=== PATIENT | male | born 1965 | race Caucasian/White ===

== ENCOUNTER 2016-08-08 15:53 | Inpatient (IN) | payer MEDICARE ==
[~2016-08-08] VITALS: Ht 188 cm; Wt 113.0 kg
[~2016-08-08 15:53] MED LIST: CALC-451 PO; DOLU50TA PO; EMTR1TAB12 PO; GABA300C10 PO; LISI1TAB5 PO; MULT-658 PO; VIT1CAPS9 PO; VITA150T PO; ZIPR60CA3 PO
[2016-08-08 16:10] VITALS: BP 134/89
[2016-08-08] MEDS ORDERED: LACTATED RINGERS 1,000 ML IV SCH (16:15)
[2016-08-08] MEDS ORDERED: FENTANYL PF 100 MCG/2ML ONE ×2 (17:02→17:37)
[2016-08-08] MEDS ORDERED: ONDANSETRON 2MG/ML, 2ML ONE (17:03)
[2016-08-08] MEDS ORDERED: PROPOFOL 10 MG/ML, 20ML ONE (17:03)
[2016-08-08] MEDS ORDERED: VANCOMYCIN 1,000 MG ONE (17:12)
[2016-08-08] MEDS ORDERED: BACITRACIN 50,000 UNIT ONE (17:17)
[2016-08-08] MEDS ORDERED: METOPROLOL 1 MG/ML, 5ML IV PRN (17:30)
[2016-08-08] MEDS ORDERED: PROMETHAZINE 25 MG/ML, 1ML IV PRN (17:30)
[2016-08-08] MEDS ORDERED: FENTANYL PF 100 MCG/2ML IV PRN (17:30)
[2016-08-08] MEDS ORDERED: MIDAZOLAM 1 MG/ML, 2ML IV PRN (17:30)
[2016-08-08] MEDS ORDERED: LABETALOL 5MG/ML, 20ML IV PRN (17:30)
[2016-08-08] MEDS ORDERED: ONDANSETRON 2MG/ML, 2ML IVPush PRN (17:30)
[2016-08-08] MEDS ORDERED: MEPERIDINE/PF 25MG/0.5ML IVPush PRN (17:30)
[2016-08-08] MEDS ORDERED: OXYcodone 5 MG/5 ML ORAL.SOL UDC PO PRN (17:30)
[2016-08-08] MEDS ORDERED: HYDROmorphone 1 MG/ML, 1ML IV PRN (17:30)
[2016-08-08] MEDS ORDERED: hydrALAzine 20 MG/ML, 1ML IV PRN (17:30)
[2016-08-08] MEDS ORDERED: OXYcodone 5 MG/5 ML ORAL.SOL UDC ONE (18:05)
[2016-08-08] MEDS ORDERED: HYDROmorphone 2 MG/ML, 1ML ONE (18:05)
[2016-08-08 19:30] LABS: HEMOGLOBIN 13.3 g/dL (13.7-18.0)
[2016-08-08 19:45] LABS: ASPARTATE AMINO TRANSFERASE 25 U/L (15-37); BLOOD UREA NITROGEN 22 mg/dL (7-18)
[2016-08-08] MEDS ORDERED: morphine SULFATE 10 MG/ML, 1ML IV PRN (20:30)
[2016-08-08] MEDS: D5%-0.45% NACL 1,000 ML IV SCH (21:00)
[2016-08-08] MEDS ORDERED: DOLUTEGRAVIR SODIUM 50 MG HOMEMEDPO SCH (21:00)
[2016-08-08] MEDS ORDERED: EMTRICITABINE/TENOFOVIR 200 MG/300 MG TABLET PO SCH (21:00)
[2016-08-08] MEDS ORDERED: PHARMACOKINETIC CONSULTATION MC ONE (21:00)
[2016-08-08] MEDS ORDERED: VANCOMYCIN PER PHARMACY MC PRN (21:00)
[2016-08-08] MEDS ORDERED: PHARMACOKINETIC MONITORING MC PRN (21:00)
[2016-08-08] MEDS: DOLUTEGRAVIR SODIUM 50 MG HOMEMEDPO SCH (22:12)
[2016-08-08] MEDS: ZIPRASIDONE 20MG CAPSULE PO SCH (22:12)
[2016-08-08] MEDS: GABAPENTIN 300 MG CAPSULE PO SCH (22:12)
[2016-08-08] MEDS: EMTRICITABINE/TENOFOVIR 200 MG/300 MG TABLET HOMEMEDPO SCH (22:13)
[2016-08-08] MEDS: AMPICILLIN/SULBACTAM 3 GM in SODIUM CHLORIDE 0.9% 100 ML IV SCH (23:32)
[2016-08-09] MEDS: VANCOMYCIN 1,800 MG in SODIUM CHLORIDE 0.9% 250 ML IV SCH ×2 (00:19→11:52)
[2016-08-09 02:33] VITALS: BP 133/79
[2016-08-09] MEDS: OXYcodone/APAP 10/325MG TABLET PO PRN (02:58)
[2016-08-09] MEDS: AMPICILLIN/SULBACTAM 3 GM in SODIUM CHLORIDE 0.9% 100 ML IV SCH ×4 (05:43→23:44)
[2016-08-09 05:45] LABS: ASPARTATE AMINO TRANSFERASE 27 U/L (15-37); BLOOD UREA NITROGEN 20 mg/dL (7-18)
[2016-08-09 08:16] VITALS: BP 124/73
[2016-08-09] MEDS: [UNRECOGNIZED DRUG - OTHER] HOMEMEDPO SCH (08:51)
[2016-08-09] MEDS: CALCIUM/VITAMIN D3 250-125 TABLET PO SCH (08:52)
[2016-08-09] MEDS: HYDROCHLOROTHIAZIDE 12.5 MG CAPSULE PO SCH (08:52)
[2016-08-09] MEDS: LISINOPRIL 20 MG TABLET PO SCH (08:52)
[2016-08-09] MEDS: MULTIVITAMIN 1 TABLET PO SCH (08:52)
[2016-08-09] MEDS ORDERED: TEMPLATE NON-FORMULARY MED. (Vitamin B Complex & Vit C No.4 (Super B Complex) 1 TAB) PO SCH (09:00)
[2016-08-09 13:27] VITALS: BP 126/75
[2016-08-09] MEDS: D5%-0.45% NACL 1,000 ML IV SCH (17:21)
[2016-08-09 20:06] VITALS: BP 120/71
[2016-08-09] MEDS: GABAPENTIN 300 MG CAPSULE PO SCH (22:06)
[2016-08-09] MEDS: ZIPRASIDONE 20MG CAPSULE PO SCH (22:06)
[2016-08-09] MEDS: EMTRICITABINE/TENOFOVIR 200 MG/300 MG TABLET HOMEMEDPO SCH (22:07)
[2016-08-09] MEDS: DOLUTEGRAVIR SODIUM 50 MG HOMEMEDPO SCH (22:08)
[2016-08-10] MEDS: VANCOMYCIN 1,800 MG in SODIUM CHLORIDE 0.9% 250 ML IV SCH ×2 (00:56→13:06)
[2016-08-10] MEDS: OXYcodone/APAP 10/325MG TABLET PO PRN ×2 (01:15→23:52)
[2016-08-10 03:22] VITALS: BP 117/66
[2016-08-10] MEDS: AMPICILLIN/SULBACTAM 3 GM in SODIUM CHLORIDE 0.9% 100 ML IV SCH ×4 (05:24→23:42)
[2016-08-10 06:14] LABS: HEMOGLOBIN 12.9 g/dL (13.7-18.0)
[2016-08-10 06:22] LABS: BLOOD UREA NITROGEN 18 mg/dL (7-18)
[2016-08-10 06:49] VITALS: BP 112/65
[2016-08-10] MEDS: LISINOPRIL 20 MG TABLET PO SCH ×2 (09:00→09:52)
[2016-08-10 09:43] VITALS: BP 116/82
[2016-08-10] MEDS: HYDROCHLOROTHIAZIDE 12.5 MG CAPSULE PO SCH (09:47)
[2016-08-10] MEDS: MULTIVITAMIN 1 TABLET PO SCH (09:47)
[2016-08-10] MEDS: [UNRECOGNIZED DRUG - OTHER] HOMEMEDPO SCH (09:47)
[2016-08-10] MEDS: CALCIUM/VITAMIN D3 250-125 TABLET PO SCH (09:47)
[2016-08-10] MEDS ORDERED: HYDROCHLOROTHIAZIDE 12.5 MG CAPSULE PO SCH (10:00)
[2016-08-10 12:36] VITALS: BP 130/80
[2016-08-10 19:43] VITALS: BP 118/70
[2016-08-10] MEDS: GABAPENTIN 300 MG CAPSULE PO SCH (20:34)
[2016-08-10] MEDS: ZIPRASIDONE 20MG CAPSULE PO SCH (20:34)
[2016-08-10] MEDS: DOLUTEGRAVIR SODIUM 50 MG HOMEMEDPO SCH (20:38)
[2016-08-10] MEDS: EMTRICITABINE/TENOFOVIR 200 MG/300 MG TABLET HOMEMEDPO SCH (20:39)
[2016-08-11] MEDS: VANCOMYCIN 1,800 MG in SODIUM CHLORIDE 0.9% 250 ML IV SCH ×2 (00:58→13:00)
[2016-08-11 04:47] LABS: HEMOGLOBIN 13.6 g/dL (13.7-18.0)
[2016-08-11 04:57] LABS: BLOOD UREA NITROGEN 18 mg/dL (7-18)
[2016-08-11] MEDS: AMPICILLIN/SULBACTAM 3 GM in SODIUM CHLORIDE 0.9% 100 ML IV SCH ×4 (05:30→23:25)
[2016-08-11 05:35] VITALS: BP 133/79
[2016-08-11 07:47] VITALS: BP 116/73
[2016-08-11] MEDS ORDERED: LISINOPRIL 20 MG TABLET PO SCH (09:00)
[2016-08-11] MEDS: CALCIUM/VITAMIN D3 250-125 TABLET PO SCH (09:40)
[2016-08-11] MEDS: HYDROCHLOROTHIAZIDE 12.5 MG CAPSULE PO SCH (09:40)
[2016-08-11] MEDS: MULTIVITAMIN 1 TABLET PO SCH (09:40)
[2016-08-11] MEDS: LISINOPRIL 20 MG TABLET PO SCH (09:40)
[2016-08-11] MEDS: [UNRECOGNIZED DRUG - OTHER] HOMEMEDPO SCH (09:40)
[2016-08-11 15:07] VITALS: BP 121/80
[2016-08-11] MEDS: VANCOMYCIN 1,900 MG in SODIUM CHLORIDE 0.9% 250 ML IV SCH (15:17)
[2016-08-11] MEDS ORDERED: ACETAMINOPHEN 325 MG TABLET PO PRN (17:00)
[2016-08-11 20:41] VITALS: BP 127/72
[2016-08-11] MEDS: GABAPENTIN 300 MG CAPSULE PO SCH (21:05)
[2016-08-11] MEDS: ZIPRASIDONE 20MG CAPSULE PO SCH (21:05)
[2016-08-11] MEDS: DOLUTEGRAVIR SODIUM 50 MG HOMEMEDPO SCH (21:06)
[2016-08-11] MEDS: EMTRICITABINE/TENOFOVIR 200 MG/300 MG TABLET HOMEMEDPO SCH (21:06)
[2016-08-11] MEDS: OXYcodone/APAP 10/325MG TABLET PO PRN (23:28)
[2016-08-12] MEDS: VANCOMYCIN 1,900 MG in SODIUM CHLORIDE 0.9% 250 ML IV SCH ×2 (01:45→14:13)
[2016-08-12 04:00] VITALS: BP 119/71
[2016-08-12] MEDS: AMPICILLIN/SULBACTAM 3 GM in SODIUM CHLORIDE 0.9% 100 ML IV SCH ×4 (05:22→23:25)
[2016-08-12 05:54] LABS: BLOOD UREA NITROGEN 16 mg/dL (7-18)
[2016-08-12 07:19] VITALS: BP 121/74
[2016-08-12] MEDS: HYDROCHLOROTHIAZIDE 12.5 MG CAPSULE PO SCH (08:55)
[2016-08-12] MEDS: LISINOPRIL 20 MG TABLET PO SCH (08:55)
[2016-08-12] MEDS: CALCIUM/VITAMIN D3 250-125 TABLET PO SCH (08:55)
[2016-08-12] MEDS: [UNRECOGNIZED DRUG - OTHER] HOMEMEDPO SCH (08:55)
[2016-08-12] MEDS: MULTIVITAMIN 1 TABLET PO SCH (08:55)
[2016-08-12 13:22] VITALS: BP 120/75
[2016-08-12] MEDS ORDERED: FENTANYL PF 250 MCG/5ML ONE (17:11)
[2016-08-12] MEDS ORDERED: MIDAZOLAM 1 MG/ML, 2ML ONE (17:11)
[2016-08-12] MEDS ORDERED: ONDANSETRON 2MG/ML, 2ML ONE (17:40)
[2016-08-12] MEDS ORDERED: PROPOFOL 10 MG/ML, 20ML ONE (17:40)
[2016-08-12] MEDS ORDERED: BALANCED SALT OPHTH IRRIG SOLN 18ML ONE (17:55)
[2016-08-12] MEDS ORDERED: BACITRACIN 50,000 UNIT ONE (17:57)
[2016-08-12] MEDS ORDERED: MEPERIDINE/PF 25MG/0.5ML IVPush PRN (18:30)
[2016-08-12] MEDS ORDERED: OXYcodone 5 MG/5 ML ORAL.SOL UDC PO PRN (18:30)
[2016-08-12] MEDS ORDERED: PROMETHAZINE 25 MG/ML, 1ML IV PRN (18:30)
[2016-08-12] MEDS ORDERED: ACETAMINOPHEN 325 MG TABLET PO PRN (18:30)
[2016-08-12] MEDS ORDERED: HYDROmorphone 1 MG/ML, 1ML IV PRN (18:30)
[2016-08-12] MEDS ORDERED: ACETAMINOPHEN 650 MG/20.3 ML UDC ONE (18:41)
[2016-08-12] MEDS ORDERED: ACETAMINOPHEN 325 MG TABLET ONE (18:41)
[2016-08-12] MEDS ORDERED: OXYcodone 5 MG/5 ML ORAL.SOL UDC ONE (18:41)
[2016-08-12] MEDS ORDERED: FENTANYL PF 100 MCG/2ML ONE (18:41)
[2016-08-12] MEDS: FENTANYL PF 100 MCG/2ML IV PRN ×2 (18:53→19:00)
[2016-08-12] MEDS: GABAPENTIN 300 MG CAPSULE PO SCH (20:14)
[2016-08-12] MEDS: EMTRICITABINE/TENOFOVIR 200 MG/300 MG TABLET HOMEMEDPO SCH (20:15)
[2016-08-12] MEDS: DOLUTEGRAVIR SODIUM 50 MG HOMEMEDPO SCH (20:15)
[2016-08-12] MEDS: ZIPRASIDONE 20MG CAPSULE PO SCH (20:15)
[2016-08-12 20:45] VITALS: BP 148/78
[2016-08-13] MEDS: OXYcodone/APAP 10/325MG TABLET PO PRN (00:03)
[2016-08-13 00:25] VITALS: BP 146/75
[2016-08-13] MEDS: VANCOMYCIN 1,900 MG in SODIUM CHLORIDE 0.9% 250 ML IV SCH (02:00)
[2016-08-13] MEDS: AMPICILLIN/SULBACTAM 3 GM in SODIUM CHLORIDE 0.9% 100 ML IV SCH (05:25)
[2016-08-13 05:50] LABS: HEMOGLOBIN 13.6 g/dL (13.7-18.0)
[2016-08-13 06:01] LABS: BLOOD UREA NITROGEN 22 mg/dL (7-18)
[2016-08-13 07:08] VITALS: BP 120/71
[2016-08-13] MEDS: [UNRECOGNIZED DRUG - OTHER] HOMEMEDPO SCH (09:00)
[2016-08-13] MEDS: MULTIVITAMIN 1 TABLET PO SCH (09:00)
[2016-08-13] MEDS: HYDROCHLOROTHIAZIDE 12.5 MG CAPSULE PO SCH (10:17)
[2016-08-13] MEDS: CALCIUM/VITAMIN D3 250-125 TABLET PO SCH (10:17)
[2016-08-13] MEDS: LISINOPRIL 20 MG TABLET PO SCH (10:18)
[2016-08-13] MEDS ORDERED: DOXY100C2 PO (10:27)
[2016-08-13] MEDS ORDERED: OXYC-223 PO (10:27)
[2016-08-13 11:59] VITALS: BP 123/73
== END 2016-08-13 12:02 | disposition home or self-care (01) | DRG 856 ==
LOC: OR 15:53 → 4NOR 19:54 → OR 23:52
PROVIDERS: ADMIT Orthopaedic Surgery; ATTEND Orthopaedic Surgery
PROC: 0LB80ZZ Excision of Left Hand Tendon, Open Approach (ICD-10-PCS; principal; 2016-08-08 17:30)
PROC: 0JBK0ZZ Excision of Left Hand Subcutaneous Tissue and Fascia, Open Approach (ICD-10-PCS; 2016-08-12)
PROC: 2W0 Placement, Anatomical Regions, Change (ICD-10-PCS; 2016-08-12)
PROC: 0XQK0ZZ Repair Left Hand, Open Approach (ICD-10-PCS; 2016-08-13)
PROC: 0JBK0ZZ Excision of Left Hand Subcutaneous Tissue and Fascia, Open Approach (ICD-10-PCS; 2016-08-13)
DX: T81.4XXA Infection following a procedure, initial encounter (principal); B20 Human immunodeficiency virus [HIV] disease; A49.02 Methicillin resistant Staphylococcus aureus infection, unspecified site; B08.4 Enteroviral vesicular stomatitis with exanthem; I11.9 Hypertensive heart disease without heart failure; F32.9 Major depressive disorder, single episode, unspecified; F19.10 Other psychoactive substance abuse, uncomplicated; B19.20 Unspecified viral hepatitis C without hepatic coma; S61.012A Laceration without foreign body of left thumb without damage to nail, initial encounter; Z88.1 Allergy status to other antibiotic agents; Z83.3 Family history of diabetes mellitus; Z88.2 Allergy status to sulfonamides; Z88.8 Allergy status to other drugs, medicaments and biological substances
CPT/HCPCS: 36415; 80048; 80053; 80202; 85025; 87040; 87070; 87075; 87077; 87186; 87205; 88304; J0295; J1170; J2250; J2405; J2704; J3010; J3370; J7050

== ENCOUNTER 2020-02-18 22:43 | Emergency (ER) | payer MEDICARE ==
[~2020-02-18] VITALS: Ht 188 cm; Wt 90.0 kg
[~2020-02-18 22:43] MED LIST changes: +DOXY100C2 PO; -EMTR1TAB12 PO; +EMTR1TAB8 PO; +LISI1TAB39 PO; -LISI1TAB5 PO; +OXYC-306 PO
[2020-02-18 22:45] VITALS: BP 142/96
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
== END 2020-02-18 23:50 | disposition home or self-care (01) ==
LOC: ED 23:03
DX: G89.29 Other chronic pain (principal); M54.9 Dorsalgia, unspecified; M79.606 Pain in leg, unspecified; Z53.21 Procedure and treatment not carried out due to patient leaving prior to being seen by health care provider